=== PATIENT | female | born 1965 | race Caucasian/White ===

== ENCOUNTER 2021-06-24 00:59 | Day surgery (SDC) | payer BC ==
[~2021-06-24] VITALS: Wt 60.5 kg
== END 2021-06-24 11:20 | disposition home or self-care (01) ==
LOC: ATC 00:59
DX: Z45.2 Encounter for adjustment and management of vascular access device (principal); Z85.118 Personal history of other malignant neoplasm of bronchus and lung; N94.10 Unspecified dyspareunia
CPT/HCPCS: J1642

== ENCOUNTER → 2021-07-14 | Outpatient (CLI) | payer BC ==
[2021-07-26 15:07] LABS: HPV 16 Negative (Negative); HPV 18 Negative (Negative); HPV OTHER HR TYPES Negative (Negative)
== END | disposition home or self-care (01) ==
LOC: LAB SHORT 08:25 → LAB 08:25
PROVIDERS: Family Medicine
DX: Z01.419 Encounter for gynecological examination (general) (routine) without abnormal findings (principal)
CPT/HCPCS: 87624; G0145

== ENCOUNTER 2021-09-30 02:02 | Day surgery (SDC) | payer BC | END 2021-09-30 09:23 | disposition home or self-care (01) | LOC: ATC 02:02 | DX: Z45.2 Encounter for adjustment and management of vascular access device (principal); Z85.118 Personal history of other malignant neoplasm of bronchus and lung; Z88.1 Allergy status to other antibiotic agents; N94.10 Unspecified dyspareunia; Z87.891 Personal history of nicotine dependence | CPT/HCPCS: 96523; J1642 ==

== ENCOUNTER 2022-04-24 08:19 | Day surgery (SDC) | payer BC | END 2022-05-02 23:05 | disposition home or self-care (01) | LOC: MOI MAM 08:19 | DX: C50.412 Malignant neoplasm of upper-outer quadrant of left female breast (principal) | CPT/HCPCS: 19285; 77065; A4648; G0279 ==